=== PATIENT | male | born 1975 | race African-American/Black ===

== ENCOUNTER 2021-07-26 19:04 | Emergency (ER) | payer MEDICAID ==
[~2021-07-26] VITALS: Ht 182.9 cm; Wt 90.0 kg
[2021-07-27 00:23] LABS: BASOPHILS % 0.4 % (0.0-2.0); EOSINOPHILS % 3.4 % (0.0-5.0); HEMATOCRIT. 44.3 % (42.0-52.0); HEMOGLOBIN. 14.5 g/dL (14.0-18.0); LYMPHOCYTES % 22.7 % (20.0-50.0); MEAN CORPUSCULAR HEMOGLOBIN 28.7 pg (28.0-32.0); MEAN CORPUSCULAR VOLUME 87.9 fL (80.0-94.0); MONOCYTES % 9.3 % (2.0-8.0); NEUTROPHILS % 64.2 % (40.0-76.0); PLATELET 358 x1000/uL (130-400); RED BLOOD CELL COUNT 5.04 mill/uL (4.7-6.1); RED CELL DISTRIBUTION WIDTH 14.1 % (11.6-14.6)
[2021-07-27 00:38] LABS: CHLORIDE 105 mEq/L (98-107)
[2021-07-27] MEDS: NITROGLYCERIN 0.4MG TABLET SL SL PRN (00:39)
[2021-07-27] MEDS: ASPIRIN 81MG TABLET PO ONE (00:39)
[2021-07-27 05:39] VITALS: BP 122/85
== END 2021-07-27 05:42 | disposition home or self-care (01) ==
LOC: ER 19:04
DX: R07.89 Other chest pain (principal); F12.10 Cannabis abuse, uncomplicated; Z88.6 Allergy status to analgesic agent; Z88.5 Allergy status to narcotic agent
CPT/HCPCS: 36415; 71045; 80053; 83880; 84484; 85025; 93005; 99285; Z7610

== ENCOUNTER 2022-08-19 13:45 | Emergency (ER) | payer MEDICAID ==
[~2022-08-19] VITALS: Ht 172.7 cm; Wt 75.0 kg
[2022-08-19 13:51] VITALS: BP 127/90
[2022-08-19] MEDS ORDERED: IBUPROFEN 600MG TABLET PO ONE (18:15)
[2022-08-19] MEDS ORDERED: FAMO-135 PO (20:21)
[2022-08-19] MEDS ORDERED: NAPR-681 MT (20:21)
== END 2022-08-19 20:29 | disposition home or self-care (01) ==
LOC: ER 13:45
DX: R22.2 Localized swelling, mass and lump, trunk (principal); K21.9 Gastro-esophageal reflux disease without esophagitis; F12.10 Cannabis abuse, uncomplicated; Z88.6 Allergy status to analgesic agent
CPT/HCPCS: 71045; 93005; 99283